=== PATIENT | female | born 1945 | race Caucasian/White ===

== ENCOUNTER → 2017-07-25 | Outpatient (CLI) | payer MEDICAID ==
[~2017-07-25] MED LIST: ACET-534 PO; ACET300T2 PO; AMLO5TAB2 PO; ATEN-100 PO; BUTACAP6 PO; CALTTAB2 PO; DICL75 PO; FAMO40TA PO; GABA100C4 PO; TRAM50 PO
--- NOTE | 2017-08-01 10:30 | RSPPFT ---
DATE OF PROCEDURE: 07/25/17 COMMENTS: Spirometry with FVC of 1.1, FEV1 of 0.77, FEV1/FVC ratio at 67%. Slow vital capacity is 66% of predicted. TLC is 71%. Diffusion capacity is normal. Post-bronchodilator study revealed a positive and significant response. IMPRESSION: 1. Severe airways obstruction. 2. Positive and significant response to acutely inhaled bronchodilator. 3. Associated restrictive component. 4. Normal diffusion capacity.
== END ==
LOC: HRSP 13:03
PROVIDERS: ATTEND Internal Medicine Sleep Medicine
DX: R06.89 Other abnormalities of breathing (principal)
CPT/HCPCS: 94060; 94726; 94729